=== PATIENT | male | born 1970 | race American Indian/Alaskan Native ===

== ENCOUNTER 2018-08-31 00:34 | Emergency (ER) | payer SELFPAY ==
[2018-08-31] MEDS ORDERED: LEVAQUIN 750MG/150ML 750 MG/150 ML BAG IV ONE (00:49)
[2018-08-31] MEDS ORDERED: NACL 0.9% 1000 ML 1,000 ML IV ONE ×5 (00:49→03:54)
[2018-08-31] MEDS ORDERED: TYLENOL PO ONE (01:11)
[2018-08-31] MEDS ORDERED: TYLENOL ONE (01:13)
[2018-08-31 01:21] LABS: Hematocrit 27.3 % (35.5-45.6); Hemoglobin 9.2 gm/dl (11.8-15.2); Mean Corpuscular HGB Conc 34 % (32-34); Mean Corpuscular Volume 85 fl (84-94); Red Cell Distribution Width 14.7 % (13.2-15.2)
--- NOTE | 2018-08-31 01:24 | Emergency Department Report ---
HPI - General Chief Complaint: Altered Mental Status Time Seen by Provider: 08/31/18 00:45 - HPI HPI: Patient traveled from [facility], and [place] to the [place] yesterday, has been sick with fever, body ache, for the past 3 days. That he was being treated for malaria in [place], but to see his primary care earlier today and get some more prescriptions. his symptoms have since got worse, so his friend brought him to er. She states periods of lethargy, decrease appetite, fatigue, nausea but no vomiting. patient has no past medical history. ED Past Medical Hx - Past Medical History Previous Medical History?: Yes Hx Hypertension: Yes - Surgical History Past Surgical History?: No - Social History Smoking Status: Never Smoker Substance Use Type: None ED Review of Systems ROS: Stated complaint: WEAKNESS,FEVER Other details as noted in HPI Physical Exam - Physical Exam Vital Signs: Vital Signs 08/31/18 00:52 Temperature 100.5 F H Pulse Rate 129 H Respiratory 32 H Rate Blood Pressure 142/82 O2 Sat by Pulse 94 Oximetry Physical Exam: Physical Exam: - General Limitations: No Limitations General appearance: alert, in no apparent distress, in mild distress - Head Head exam: Present: atraumatic, normocephalic - Eye Eye exam: Present: normal appearance - ENT ENT exam: Present: mucous membranes moist - Neck Neck exam: Present: normal inspection - Respiratory Respiratory exam: Present: normal lung sounds bilaterally. Absent: respiratory distress - Cardiovascular Cardiovascular Exam: Present: normal rhythm, tachycardia. Absent: systolic murmur, diastolic murmur, rubs, gallop - GI/Abdominal GI/Abdominal exam: Present: soft, normal bowel sounds - Extremities Exam Extremities exam: Present: normal inspection - Back Exam Back exam: Present: normal inspection - Neurological Exam Neurological exam: Present: alert, lethargic - Psychiatric Psychiatric exam: normal affect and mood - Skin Skin exam: Present: warm, dry, intact, normal color. Absent: rash ED Course Vital Signs 08/31/18 00:52 Temperature 100.5 F H Pulse Rate 129 H Respiratory 32 H Rate Blood Pressure 142/82 O2 Sat by Pulse 94 Oximetry - Reevaluation(s) Reevaluation #1: 08/31/18 02:38 Sepsis protocol done Patient was treated for malaria, anemia, thrombocytopenia, elevated liver function tests makes a diagnosis of malaria very likely. We'll admit for further treatment 08/31/18 02:38 Reevaluation #2: 08/31/18 03:[address] Toy [place], he states IV Quinidine not available, patient with cerebral malaria, needs txfr. spoke with pharmacist, who confirms, no iv antimalarial, patient no safe taking p.o, will transfer. Reevaluation #3: 08/31/18 04:04 patient accepted at [facility] [place]. by dr. Blackburn. ED Medical Decision Making - Lab Data Result diagrams: 08/31/18 01:07 08/31/18 01:07 Critical care attestation.: If time is entered above; I have spent that time in minutes in the direct care of this critically ill patient, excluding procedure time. ED Disposition Clinical Impression: Malaria Disposition: [id number] ANOTHER TYPE HLTHCARE Is pt being admited?: Yes Does the pt Need Aspirin: No Condition: Stable Referrals: PRIMARY CARE, [Primary Care Provider] - 3-5 Days
[2018-08-31 01:30] LABS: Platelet Count 36 K/mm3 (140-440)
[2018-08-31 01:35] LABS: Albumin 2.7 g/dL (3.9-5); Calcium 7.9 mg/dL (8.4-10.2)
[2018-08-31 01:39] LABS: Partial Thromboplastin Time 27.5 Sec. (24.2-36.6)
[2018-08-31 02:31] LABS: Band Neutrophils # (Manual) 1.8 K/mm3; Basophils % (Manual) 0 % (0.0-1.8); Eosinophils % (Manual) 0 % (0.0-4.3); Total Cells Counted 100
[2018-08-31 02:32] LABS: Anisocytosis 1+; Stomatocytes Few
[2018-08-31 02:33] LABS: Platelet Estimate Consistent w Auto
--- NOTE | 2018-08-31 03:03 | Cat Scan Report ---
FINAL REPORT PROCEDURE: CT HEAD/BRAIN WO CON TECHNIQUE: Computerized tomography of the head was performed without contrast material. HISTORY: ams COMPARISON: No prior studies are available for comparison. FINDINGS: Skull and scalp: Normal. Paranasal sinuses: Normal. Ventricles and subarachnoid spaces: Normal. Cerebrum: No evidence of hemorrhage, acute infarction or mass . Cerebellum and brainstem: No evidence of hemorrhage, acute infarction or mass. Vasculature: Normal. Comments: None. IMPRESSION: Normal Examination
--- NOTE | 2018-08-31 03:10 | XRay Report ---
FINAL REPORT PROCEDURE: XR CHEST 1V AP TECHNIQUE: Chest radiograph anteroposterior view. CPT 61913 HISTORY: fever COMPARISON: No prior studies are available for comparison. FINDINGS: Heart: Normal. Mediastinum/Vessels: Normal. Lungs/Pleural space: Normal. Bony thorax: No acute osseous abnormality. Life support devices: None. IMPRESSION: No acute cardiopulmonary abnormality.
[2018-08-31] MEDS ORDERED: DOXYCYCLINE HYCLATE 200 MG in NACL 0.9% 250ML 250 ML IV ONE (04:00)
[2018-08-31 06:03] VITALS: BP 128/72
== END 2018-08-31 06:03 | disposition other institution (70) ==
LOC: ED 00:34
DX: B54 Unspecified malaria (principal); I10 Essential (primary) hypertension; R41.82 Altered mental status, unspecified
CPT/HCPCS: 36415; 70450; 71045; 80053; 82140; 82550; 84484; 85007; 85025; 85384; 85730; 86850; 86900; 86901; 87040; 87207; 87400; 93005; 93010; 96365; 96366; 96367; 99285; J1956; J7030; J7050; 96361